=== PATIENT | female | born 1965 | race African-American/Black ===

== ENCOUNTER → 2019-11-21 | Outpatient (CLI) | payer MEDICARE, MEDICAID ==
--- NOTE | 2019-11-21 16:33 | RADIOLOGY REPORT (SQ) ---
EXAM DESCRIPTION: U/S NON-OB PELVIS TV W/O DOP IMAGES COMPLETED DATE/TIME: 11/21/2019 4:15 pm REASON FOR STUDY: N95.0 POSTMENOPAUSAL BLEEDING N95.0 POSTMENOPAUSAL BLEEDING COMPARISON: None. TECHNIQUE: Dynamic and static grayscale images acquired of the pelvis via transvaginal approach and recorded on PACS. Additional selected color Doppler and spectral images recorded. LIMITATIONS: None. FINDINGS: UTERUS: Contour normal. No mass. ENDOMETRIAL STRIPE: And image stripe measures 13 mm in diameter. The endometrium is heterogeneous in echotexture. CERVIX: No nabothian cysts. RIGHT OVARY AND DOPPLER: Normal size. No worrisome masses. Doppler was not ordered. LEFT OVARY AND DOPPLER: Normal size. No worrisome masses. Doppler was not ordered. There is a simpl e left ovarian cyst measured 1.2 x 1.0 x 1.5 cm. FREE FLUID: None noted. OTHER: No other significant finding. MEASUREMENTS: UTERUS: 6.8 x 3.5 x 4.9 cm. ENDOMETRIAL STRIPE: 13 mm. RIGHT OVARY: 2.5 x 1.1 x 1.1 cm. LEFT OVARY: 2.8 x 1.8 x 2.5 cm. IMPRESSION: Thickened heterogeneous endometrium. Is could represent infectious or inflammatory proc ess. Endometrial hyperplasia is a possibility. Neoplasm cannot be excluded. TECHNICAL DOCUMENTATION: JOB ID: [id number] [employer]- All Rights Reserved Rev-08/07 Reading location - IP/workstation name: [email or web address]
== END ==
LOC: RAD 15:47
PROVIDERS: ATTEND Physician Assistant
DX: N95.0 Postmenopausal bleeding (principal); N83.292 Other ovarian cyst, left side
CPT/HCPCS: 76830